=== PATIENT | male | born 1950 | race Caucasian/White ===

== ENCOUNTER 2022-07-04 08:48 | Day surgery (SDC) | payer OTHER, SELFPAY ==
[2022-07-01 15:02] VITALS: BMI 30.1
--- NOTE | 2022-07-03 09:39 | P.CONAN_ITS ---
Documented by User: Clarisse Moss NP 07/03/22 09:40 HPI - Anesthesia Eval Consult details Narrative: 72yo M for Colonoscopy [facility] Past Medical History Medical History (Updated 07/04/22 @ 09:59 by Leelee Jain RN) Back pain Bilateral cataracts BPH (benign prostatic hyperplasia) Cataract Elevated cholesterol GERD (gastroesophageal reflux disease) HTN (hypertension) Surgical History Surgical History (Updated 07/01/22 @ 15:01 by Maryjo De Leon, RN) Hx of colonoscopy Hx of tooth extraction Social History Social History Patient Tobacco Use Status: Never used Tobacco Use of substances other than those prescribed or required for medical reasons: No Are you DNR?: No Advance Directives: No Advance Directives Information Provided: Yes Recently lost weight without trying: No Nutrition Risks: No Nutritional Risk Meds Allergies Allergy/AdvReac Type Severity Reaction Status Date / Time loratadine [From CLARITIN] Allergy Mild DIFF Verified 07/04/22 09:59 BREATHING Home Medications Medication Instructions Recorded Confirmed Last Taken Type lisinopril 10 PO 07/01/22 07/04/22 History Exam Exam Date and Time: July 03, 2022 0939 Height,Weight and Vital Signs: Height 5 ft 11 in Weight 97.976 kg Assessment and Plan Assessment Anesthesia Assessment: Chart Reviewed Documented by User: Rachel Barajas MD 07/04/22 11:22 [facility] Past Medical History Medical History (Updated 07/04/22 @ 09:59 by Leelee Jain RN) Back pain Bilateral cataracts BPH (benign prostatic hyperplasia) Cataract Elevated cholesterol GERD (gastroesophageal reflux disease) HTN (hypertension) Family History Family history of problems with anesthesia: No Surgical History Surgical History (Updated 07/01/22 @ 15:01 by Maryjo De Leon, SUSAN) Hx of colonoscopy Hx of tooth extraction History of Problems with Anesthesia: No Social History Social History Patient Tobacco Use Status: Never used Tobacco Use of substances other than those prescribed or required for medical reasons: No Are you DNR?: No Advance Directives: No Advance Directives Information Provided: Yes Recently lost weight without trying: No Nutrition Risks: No Nutritional Risk Meds Allergies Allergy/AdvReac Type Severity Reaction Status Date / Time loratadine [From CLARITIN] Allergy Mild DIFF Verified 07/04/22 09:59 BREATHING Home Medications Medication Instructions Recorded Confirmed Last Taken Type lisinopril 10 PO 07/01/22 07/04/22 History Exam Height,Weight and Vital Signs: Height 5 ft 11 in Weight 97.976 kg Vital Signs Temp Pulse Resp BP Pulse Ox O2 Del Method 07/04/22 09:46 97.6 F 71 18 130/92 H 97 Room Air Airway Mallampati Class: III TM Dist: >3cm Neck ROM: Full Loose/Missing/Broken Teeth: No (Dental implants intact) Heart: RRR Lungs: CTAB Assessment and Plan Assessment Anesthesia Assessment: Anesthesia Plan Discussed Final Anesthetic Review Family History of Problems with Anesthesia: No History of Problems with Anesthesia: No NPO: Yes ASA Class: III Final Preanesthetic Review: No Changes in Pt Med Stat, Meds/Allgs Chart Reviewed, Consent Obtained/Reviewed and Anes Risks/Benef Reviewed Patient Risk: Low Procedure Risk: Low Assessment/Block/Sedation in SS: Assess/Block/Sedation-SS Anesthetic Plan Anesthetic Plan: MAC: Disposition: Standard PACU
--- NOTE | ~2022-07-04 | FL_ITS ---
EXAMINATION: XR BARIUM ENEMA CLINICAL INFORMATION: Incomplete colonoscopy COMPARISON: None TECHNIQUE: Single contrast barium enema was performed. FINDINGS: There is contrast reaching the cecum. No mass or stricture or evidence of significant diverticular disease is seen. The colon is normal in caliber and there is no evidence of obstruction. FLUOROSCOPY TIME: 1.6 minutes DOSE AREA PRODUCT: 25 julian per centimeter squared. 23 fluoroscopic images and 19 overhead images. FL/FL barium enema IMPRESSION: Unremarkable examination.
[2022-07-04 09:46] VITALS: BP 130/92; PULSE 71; RESP 18; TEMP 36.4; O2SAT 97
[2022-07-04] MEDS: Lactated Ringers 1,000 ML 100 ML IVCONT (09:59)
--- NOTE | 2022-07-04 10:56 | MHC.SHP ---
Pre-Procedural Eval Section A Date of Service: 07/04/22 Section B Chief Complaint: screening Details of Present Illness: see H&P no changes Relevant Family History (Specify if Yes): No Relevant Social History: None Present Medications: see Short Stay Collaborative assessment Medical History: No relevant PMH History of Previous Operations: No relevant previous surgery Allergies: Allergies Allergy/AdvReac Type Severity Reaction Status Date / Time loratadine [From CLARITIN] Allergy Mild DIFF Verified 07/04/22 09:59 BREATHING Plan I have reviewed the history and physical and performed a pertinent physical examination on my patient. No changes have occurred unless specified.
--- NOTE | 2022-07-04 11:41 | PM.OP ---
Brief Operative Note Date of Service: 07/04/22 Pre-op diagnosis: screening Post-op diagnosis: same Procedure: colonoscopy to hepatic flexure Surgeon: Victor M Preston Was an Loading Unit Tool Setter used for this Procedure?: No Estimated blood loss (mL): 0 Pathology: none sent Condition: stable Disposition: PACU
[2022-07-04 11:44] VITALS: BP 123/71; PULSE 63; RESP 16; TEMP 36.9; O2SAT 98
[2022-07-04 12:02] VITALS: BP 131/81; PULSE 58; RESP 17; O2SAT 98
[2022-07-04 12:17] VITALS: BP 129/77; PULSE 53; RESP 17; O2SAT 98
[2022-07-04 12:37] VITALS: BP 136/81; PULSE 55; RESP 16; O2SAT 97
[2022-07-04 14:49] VITALS: BP 150/87; PULSE 98; RESP 17; TEMP 36.6; O2SAT 98
--- NOTE | 2022-07-05 05:31 | OP_ITS ---
SURGEON: Victor M Preston MD INDICATIONS: Colon cancer screening. PREOPERATIVE DIAGNOSIS: POSTOPERATIVE DIAGNOSIS: PROCEDURE PERFORMED: ESTIMATED BLOOD LOSS: COMPLICATIONS: ANESTHESIA: ASSISTANTS: SPECIMENS: PROCEDURE: Colonoscopy to the hepatic flexure on 07/04/22. MEDICATIONS: Monitored anesthesia care. DESCRIPTION OF PROCEDURE: History and physical performed. The risks and benefits of the procedure were explained to the patient. Informed consent was obtained. The patient was placed in the left lateral decubitus position. A digital rectal exam was performed and was found to be normal. The Olympus pediatric video colonoscope was introduced into the rectum and advanced to the hepatic flexure. Examination was performed. The scope was removed. He tolerated the procedure well and was taken to recovery in stable condition. FINDINGS: The scope could only be advanced to the hepatic flexure due to looping in the sigmoid, which persisted despite repositioning the patient and application of abdominal pressure. It is estimated that 80% of the colon was examined. The visualized colonic mucosa was within normal limits without evidence of masses or ulcers. No polyp was seen. The quality of the prep was good. Retroflexed examination was normal. The procedure was done on 07/04/2022. IMPRESSION: Normal colonoscopy to the hepatic flexure. RECOMMENDATION: Barium enema after recovery to examine the visualized remainder of the colon. MD DARRYL Mead/JORGE / [id number] MTDD
== END 2022-07-04 15:18 | disposition home or self-care (01) ==
PROVIDERS: PCP Physician Assistant Medical; Visit Provider Internal Medicine Gastroenterology
PROC: 0DJD8ZZ Inspection of Lower Intestinal Tract, Via Natural or Artificial Opening Endoscopic (ICD-10-PCS; CPT 45378; principal; 2022-07-04 10:30)
DX: Z12.11 Encounter for screening for malignant neoplasm of colon (principal); K56.2 Volvulus; N40.0 Benign prostatic hyperplasia without lower urinary tract symptoms; R97.20 Elevated prostate specific antigen [PSA]; I10 Essential (primary) hypertension; K21.9 Gastro-esophageal reflux disease without esophagitis; E78.00 Pure hypercholesterolemia, unspecified; M54.9 Dorsalgia, unspecified; Z79.899 Other long term (current) drug therapy
CPT/HCPCS: 45378; 74270